=== PATIENT | female | born 1955 | race Caucasian/White ===

== ENCOUNTER 2024-09-16 02:46 | Emergency (ER) | payer MEDICARE, MEDICAID ==
[~2024-09-16] VITALS: Ht 165.1 cm; Wt 63.6 kg
[2024-09-16 03:26] LABS: BASOPHILS % (AUTO) 1.4 % (0-1); EOSINOPHILS # (AUTO) 0.2 X10'3 (0-0.9); EOSINOPHILS % (AUTO) 6.5 % (0-6); HEMATOCRIT 40.2 % (35.0-45.0); HEMOGLOBIN 12.9 g/dl (12.0-16.0); LYMPHOCYTES # (AUTO) 1.1 X10'3 (1.1-4.8); LYMPHOCYTES % (AUTO) 33.1 % (21-51); MEAN CORPUSCULAR HEMOGLOBIN 27.2 PG (27.0-31.0); MEAN CORPUSCULAR HGB CONC 32.2 g/dL (33.0-36.5); MEAN CORPUSCULAR VOLUME 84.4 FL (78-98); MEAN PLATELET VOLUME 8.6 FL (7.4-10.4); MONOCYTES # (AUTO) 0.4 X10'3 (0-0.9); MONOCYTES % (AUTO) 13.1 % (2-12); NEUTROPHILS # (AUTO) 1.5 X10'3 (1.8-7.7); NEUTROPHILS % (AUTO) 45.9 % (42-75); PLATELET COUNT 161 X10'3 (140-440); RED BLOOD COUNT 4.77 X10'6 (4.20-5.60); RED CELL DISTRIBUTION WIDTH 18.8 % (11.5-14.5); WHITE BLOOD COUNT 3.3 X10'3 (4.5-11.0)
[2024-09-16 03:37] LABS: ALANINE AMINOTRANSFERASE 31 U/L (12-78); ALBUMIN 2.9 G/DL (3.4-5.0); ALBUMIN/GLOBULIN RATIO 0.7 (1.1-1.5); ALKALINE PHOSPHATASE 129 IU/L (46-116); ANION GAP 7 (8-16); ASPARTATE AMINO TRANSFERASE 33 U/L (10-37); BILIRUBIN,TOTAL 0.4 MG/DL (0.1-1.0); BLOOD UREA NITROGEN 18 MG/DL (7-18); BUN/CREATININE RATIO 38.3 (10.0-20.0); CALCIUM 9.3 MG/DL (8.5-10.1); CHLORIDE 102 MMOL/L (99-107); CREATININE 0.47 MG/DL (0.40-0.90); GLUCOSE 108 MG/DL (70-104); LIPASE 55 U/L (16-77); POTASSIUM 3.5 MMOL/L (3.5-5.1); SODIUM 138 MMOL/L (135-145); TOTAL CARBON DIOXIDE 29.2 MMOL/L (24-32); eCRCL 105 ML/MIN; eGFR > 90 ML/MIN
--- NOTE | 2024-09-16 04:01 | Physician Documentation ---
History of Present Illness Chief Complaint: Abdominal Pain Stated Complaint: ABD PAIN Time Seen by MD: 04:00 Source: patient Mode of Arrival: EMS HPI 69-year-old female, presenting with right side abdominal and back pain. She tells me that for about the past 1 week she has been having pain, that started in her right flank, and then wrapped around the right side of her abdomen towards her lower abdomen. It has been constant, and very uncomfortable, she has not been able to sleep due to the pain. She also reports that she noticed a rash over her right side. She states it was very painful and itchy, and was draining fluid. She thought it was a fungal rash and so her family was putting antifungal cream on it but this did not seem to help. She also reports dysuria and foul-smelling urine. No fevers, chills, or left-sided flank pain. No nausea or vomiting. No other acute concerns. Medication Reconciliation Allergies: Coded Allergies: sulfamethoxazole (Verified Allergy, Unknown, 09/16/24) trimethoprim (Verified Allergy, Unknown, 09/16/24) Uncoded Allergies: PENICILLIN (Allergy, Unknown, 09/16/24) Scheduled Cephalexin*Monohydrate* (Keflex*), 1 CAP PO TID Scheduled PRN Hydrocodone Bit/Acetaminophen 5/325 MG ([place]ena 5/325 MG), 1 TAB PO Q8H PRN for pain Review of Systems Constitutional: Denies: fever Gastrointestinal: Reports: abdominal pain; Denies: nausea, vomiting, diarrhea Genitourinary: Reports: burning Integumentary: Reports: rash Physical Exam Vital Signs: Temperature: 97.5, Source: Oral, Heart Rate: 94, Respiratory Rate: 16, BP: 99/76, Pulse Oximetry: 95, Weight: 63.640 Oxygen Flow Rate: 0 Physical Exam General: This is a very pleasant and nontoxic appearing middle-aged female HEENT: Atraumatic, oropharynx appears dry Heart: Mild tachycardic, appears regular Lungs: Clear breath sounds bilateral, normal work of breathing, normal oxygen saturation on room air Abdomen: Soft, nondistended. Tender to palpation on the right lateral abdomen and suprapubic region. No left-sided tenderness. Skin: The patient has a rash over her right flank and abdomen. It extends from the midline back and wraps around the right flank to the right lower abdomen. It is scattered small round scabbed areas with mild surrounding erythema. Appears consistent with zoster. No significant superinfection. It is very painful to touch. Neuro: Alert and oriented, no focal deficits Psychiatric: Calm and cooperative with exam Progress Results/Orders Results/Orders Orders - JAYDEN JUNG MD Urinalysis, Cult If Indicated (09/16/24 02:57) Completed Orders - JAYDEN JUNG MD Cbc/Diff (09/16/24 02:57) Lipase (09/16/24 02:57) CMP (09/16/24 02:57) Vital Signs 09/16/24 02:55 Temp 97.5 Pulse 94 Resp 16 B/P (MAP) 99/76 Pulse Ox 95 O2 Flow Rate 0 Laboratory Tests Test 09/16/24 03:13 White Blood Count 3.3 L Red Blood Count 4.77 Hemoglobin 12.9 Hematocrit 40.2 Mean Corpuscular Volume 84.4 Mean Corpuscular Hemoglobin 27.2 Mean Corpuscular Hemoglobin Concent 32.2 L Red Cell Distribution Width 18.8 H Platelet Count 161 Mean Platelet Volume 8.6 Neutrophils (%) (Auto) 45.9 Lymphocytes (%) (Auto) 33.1 Monocytes (%) (Auto) 13.1 H Eosinophils (%) (Auto) 6.5 H Basophils (%) (Auto) 1.4 H Neutrophils # (Auto) 1.5 L Lymphocytes # (Auto) 1.1 Monocytes # (Auto) 0.4 Eosinophils # (Auto) 0.2 Basophils # (Auto) 0.0 CBC Comment Sodium Level 138 Potassium Level 3.5 Chloride Level 102 Carbon Dioxide Level 29.2 Anion Gap 7 L Blood Urea Nitrogen 18 Creatinine 0.47 Estimated GFR/1.73 m2 > 90 BUN/Creatinine Ratio 38.3 H Glucose Level 108 H Calcium Level 9.3 Total Bilirubin 0.4 Aspartate Amino Transf (AST/SGOT) 33 Alanine Aminotransferase (ALT/SGPT) 31 Alkaline Phosphatase 129 H Total Protein 7.0 Albumin 2.9 L Globulin 4.1 Albumin/Globulin Ratio 0.7 L Lipase 55 Chemistry Comments Medical Decision Making Additional Comments Differential includes kidney stone, kidney infection or UTI, zoster, cellulitis, gallbladder disease, appendicitis, bowel obstruction Assessment The patient presents with 1 week of right-sided back and abdominal pain as well as dysuria. On exam she has findings consistent with a zoster rash, which seems to be the cause of her right-sided pain. She also does have a urinary tract infection, but I doubt pyelonephritis or sepsis given her lack of fever, leukocytosis, or other acute abnormality. She is otherwise well-appearing. Her zoster rash has been present for at least a week, and so I do not feel it antivirals it be indicated at this time. She will be given pain medication especially to help her sleep. She will be treated with Keflex for her urinary tract infection, to cross cover to prevent cellulitis related to her shingles. She was given home care instructions and return precautions. Departure Time of Disposition: 05:10 Disposition: 01 HOME / SELF CARE / HOMELESS Impression: Primary Impression: UTI (urinary tract infection) Additional Impression: Shingles rash Condition: Improved Discharge Instructions: Shingles, Urinary Tract Infection, Adult Referrals: NO PRIMARY CARE PROVIDER (PCP) [facility] Prescriptions Cephalexin*Monohydrate* (Keflex*) 500 Mg Capsule 1 CAP PO TID for 7 Days, #21 CAP Prov: JAYDEN JUNG MD 09/16/24 Hydrocodone Bit/Acetaminophen 5/325 MG (Modena 5/325 MG) 5 Mg/325 Mg Tablet 1 TAB PO Q8H PRN for pain for 7 Days, #14 TAB Prov: JAYDEN JUNG MD 09/16/24 Education Educated: Patient Educated regarding: diagnosis, treatment, need for follow up Signature Scribe Signature: jeanne Attestation: JAYDEN Sharma MD September 16, 2024 04:01
[2024-09-16 04:41] LABS: BILIRUBIN,URINE NEGATIVE (Neg); COLOR,URINE YELLOW (Yellow); GLUCOSE, URINE NEGATIVE (Neg); KETONES,URINE NEGATIVE (Neg); LEUKOCYTE ESTERASE ,URINE MODERATE (Neg); NITRITES, URINE NEGATIVE (Neg); OCCULT BLOOD,URINE LARGE (Neg); PROTEIN,URINE TRACE mg/dl (Neg); UROBILINOGEN,URINE 0.2 E.U/dL (0.2-1.0)
[2024-09-16 04:43] LABS: UA COLLECTION TYPE STRAIGHT CATH
[2024-09-16 04:52] LABS: BACTERIA,URINE 4+ /HPF (Neg); CLARITY,URINE CLOUDY (Clear); RBC,URINE 20-50 /HPF (0-2); WBC,URINE TNTC /HPF (0-4)
[2024-09-16 04:53] LABS: SQUAMOUS EPITHELIAL CELL,UR NONE SEEN /LPF (FEW)
[2024-09-16] MEDS: oxyCODONE IR 5mg (immed. release) tablet PO ONE (05:02)
[2024-09-16] MEDS: cephalexin 250mg capsule PO ONE (05:23)
[2024-09-16] MEDS ORDERED: HYDR-3965 PO (05:35)
[2024-09-16] MEDS ORDERED: CEPH-585 PO (05:35)
[2024-09-16] MEDS: HYDROcodone/acetaminophen 5mg/325mg tablet PO ONE (05:54)
[2024-09-16 06:26] VITALS: BP 110/75; PULSE 88; RESP 16; TEMP 97.5; O2SAT 99
== END 2024-09-16 09:15 | disposition home or self-care (01) ==
LOC: ER 02:47
DX: N39.0 Urinary tract infection, site not specified (principal); B02.9 Zoster without complications; Z88.1 Allergy status to other antibiotic agents; Z88.2 Allergy status to sulfonamides
CPT/HCPCS: 36415; 80053; 81001; 83690; 85025; 87088; 99284; A4353; 87077; 87186

== ENCOUNTER 2024-09-22 23:13 | Emergency (ER) | payer MEDICARE, MEDICAID ==
[~2024-09-22] VITALS: Ht 165.1 cm; Wt 81.8 kg
[~2024-09-22 23:13] MED LIST: CEPH-585 PO; HYDR-3965 PO
[2024-09-22] MEDS ORDERED: proCHLORperazine 10 MG/2 ml inj IV PRN (23:30)
--- NOTE | 2024-09-22 23:32 | Physician Documentation ---
History of Present Illness Chief Complaint: Abdominal Pain Stated Complaint: ABDOMINAL PAIN Time Seen by MD: 23:19 HPI This is a 69-year-old female, bed-bound, comes in for evaluation of diffuse abdominal pain and nausea that has been present and getting progressively worse for the last 14 days. No obvious trigger, trauma provocation. No palliating or aggravating factors were reported with the patient. She did attempt to treat it by taking her morphine that she normally takes for her chronic neck pain without any success whatsoever. EMS provided her with Zofran without relief of the nausea. No concern for tobacco, alcohol or illicit substances use Medication Reconciliation Allergies: Coded Allergies: Penicillins (Unverified Allergy, Unknown, 09/22/24) sulfamethoxazole (Verified Allergy, Unknown, 09/22/24) trimethoprim (Verified Allergy, Unknown, 09/22/24) Scheduled Cephalexin*Monohydrate* (Keflex*), 1 CAP PO TID Scheduled PRN Hydrocodone Bit/Acetaminophen 5/325 MG ([place] 5/325 MG), 1 TAB PO Q8H PRN for pain Review of Systems ROS 10 point review of systems was performed and unless noted above in HPI is negative for acute process/complaint. Physical Exam Vital Signs: Temperature: 98.2, Heart Rate: 94, Respiratory Rate: 18, BP: 114/77, Pulse Oximetry: 97, Weight: 81.820 Physical Exam GENERAL: Awake, alert, oriented, GCS 15, no apparent distress, non-toxic appearing, answers questions, follows commands appropriately. Examined immediately upon arrival in bed 11. HEENT: Atraumatic, normocephalic, pupils equal, extraocular muscles intact, sclerae anicteric, mucus membranes moist, oropharynx is clear, no stridor. NECK: supple, full active range of motion, trachea midline, no thyromegaly, no lymphadenopathy, no JVD. CARDIOVASCULAR: regular rate/rhythm, no murmurs/gallops/rubs, Pulses are 2+ in all extremities and symmetric. Capillary refill less than 2 seconds. PULMONARY: Nonlabored, good air movement ,no respiratory distress, speaking in full sentences, clear to auscultation bilaterally, no wheezing, no ronchi, no rales, no accessory muscle use. GASTROINTESTINAL: Soft, diffuse abdominal tenderness palpation, non-distended, normal active bowel sounds, no organomegaly, no pulsatile masses, no CVA tenderness. NEUROLOGIC: Lucid with normal mental status. Normal facial symmetry. Moves all extremities symmetrically and with purpose. No truncal ataxia. Speech is fluid without evidence of dysarthria or aphasia, no focal deficits appreciated. MUSCULOSKELETAL: There is full range of motion of all extremities. There is no joint pain or joint swelling or joint erythema. There is no muscle pain or tenderness or swelling. EXTREMITIES: warm, well-perfused, no cyanosis, no clubbing, no edema, no acute deformities. Skin: warm, dry, no rashes or lesions, no jaundice, no petechiae orpurpura. No ecchymosis. PSYCHIATRIC: Normal affect, normal insight, normal concentration. Focused exam: [] No guarding or rebound Progress Results/Orders Results/Orders Orders - ENEDELIA SCHWAB DO Electrocardiogram (09/22/24 23:26) Cbc/Diff (09/22/24 23:26) Lipase (09/22/24 23:) LDH (09/22/24 23:26) Pt Inr (09/22/24 23:26) PTT (09/22/24 23:26) Chest,Single View (09/22/24 23:26) MG (09/22/24 23:26) Ct Abdomen Pelvis (09/22/24 23:26) CMP (09/22/24 23:26) Hs Troponin I W Calculations (09/22/24 23:26) Hs Troponin I W Calculations (09/23/24 01:26) Hs Troponin I W Calculations (09/23/24 02:26) Diatr Meglu/Diatrizoate 30ml (Gastrograf (09/22/24 23:30) Prochlorperazine Inj (Compazine Inj) (09/22/24 23:30) Morphine 4mg/Ml Inj. (Morphine Inj.) (09/22/24 23:30) Vital Signs 09/22/24 23:21 Temp 98.2 Pulse 94 Resp 18 B/P (MAP) 114/77 Pulse Ox 97 EKG/XRAY/CT/US/VASC/MRI EKG : Additional Comment EKG was obtained at my request and interpreted by myself shows sinus rhythm, rate of 89, normal SD interval, narrow QRS, no QT prolongation, normal axis, no STEMI. Medical Decision Making Findings Facility Status: ED Holds, RME process The plan was discussed with the patient, who demonstrates clear understanding of the plan and is in agreement with the plan unless otherwise noted in the chart. All questions have been answered, all concerns were addressed unless otherwise documented. I was available throughout their ED stay for frequent reassessment and questions. Differential Diagnoses (considered and possible or likely): [Differential diagnosis considered includes acute appendicitis, acute cholecystitis, pancreatitis, gastritis, PUD, diverticulitis, mesenteric ischemia, abdominal aortic aneurysm, bowel obstruction, enteritis, colitis, fecal impaction, volvu yanna, IBS, inflammatory bowel disease, specific food intolerance, peritonitis, perforated viscous, malignancy, UTI, abscess, and abdominal pain NOS. Pelvic source of pain was also considered including endometritis, dysmenorrhea, ovarian cyst, ovarian torsion, PID, TOA, cervicitis, vaginitis, or uterine fibroid. History, physical exam, and workup exclude many of the more serious causes listed above. ] ??Differential Diagnoses (considered and unlikely, not requiring evaluation currently): [Aortic/great vessels dissection was considered but it is unlikely based on absence of ripping, tearing, migratory chest pain, absence of syncope or focal neurologic deficits, physical examination indicating equal and sym metric pulses.] MDM Data Please see [facility] for the following: Independent Historians and external Records Review. Historian: [Patient] Independent Historians: ?[EMS, record review] Medication Management: [Reviewed medication list] Social History and determinants: [Reviewed] Please see the body of the note for the following: Any independent interpretations of ECG, imaging studies. All vitals signs/haemodynamics, ordered tests were independently reviewed and interpreted by myself. Nursing triage complaint and vitals reviewed, additional nursing notes were reviewed as available and I agree unless otherwise noted or documented in contradiction in the chart Vital Signs: Independently reviewed Labs: Independently interpreted Imaging: Independently interpreted Old Medical Records: Independently reviewed, see [facility] for relevant summary and information Pulse Oximetry: [95%] interpreted as [normal on room air] by me [Security Sergeant: [Regular Rate, Regular rhythm, no ectopy, NSR] reviewed and interpreted by me] Additionally notably showing: [Hemodynamically stable. Unremarkable workup. Blood work notable for mild dehydration. CT notable for constipation.] Tests considered but not ordered include: [Ultrasound has been considerably but she is status post cholecystectomy] Social Determinants of Health Impact: Patient was evaluated in [facility], or [facility] [place] to healthcare due to below par ratio of patient to medical providers. [] Comorbid Conditions Impacting Present Evaluation and Care/Treatment: [Multiple see list] Management Discussions with other Healthcare Providers: [Non] Treatment and Disposition Medication Management (Given or considered): [Pain management]. See EMR for details Consideration for Hospitalization/Escalation/Deescalation of Care: Admission for observation has been considered, [however the patient is able to tolerate p.o., their symptoms are controlled, they are able to rely on oral medications, and their chief complaint/diagnosis can be managed on outpatient basis.] ?ED Course:?[No clinical deterioration, no life-threatening process on the CT scan. Patient was resting comfortably sleeping in bed.] ?Shared decision making:?[Patient is hemodynamically stable for discharge home with follow with their primary care provider. [ ] Specific and cautious return precautions provided and discussed with full understanding. Any incidental findings were also discussed and follow up recommendations given. [] All questions answered. Patient/family were able to verbalize back return precautions. Patient/family agree to plan. Copies of imaging and laboratory studies were provided.] Code status:?FULL Please see the full Electronic Medical Record for full details of nursing documentation, medications list, other records of complete past medical history and conditions, vital signs, laboratory studies, and any radiologic study interpretations by radiologists. Portions of this note were completed using [employer] dictation software and as a result there may exist minor errors in spelling. I have reviewed elements of past family and social history and agree as included in note. Departure Disposition: 01 HOME / SELF CARE / HOMELESS Impression: Primary Impression: Abdominal pain Additional Impression: Constipation Discharge Instructions: Constipation, Adult, Abdominal Pain (Nonspecific) Referrals: NO PRIMARY CARE PROVIDER (PCP) Education Educated: Patient Educated regarding: diagnosis, treatment, prognosis, need for follow up Signature Scribe Signature: No scribe Attestation: This note accurately reflects clinical decisions, work performed by myself, DO JOSSELIN Collins NICHOLAS M DO September 22, 2024 23:31
--- NOTE | 2024-09-22 23:38 | ELECTROCARDIOGRAPH REPORT ---
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 Mitul Guerrero Measurements Intervals [place] Rate: 89 P: 82 [place]: 149 QRS: 61 QRSD: 98 T: 42 QT: 376 QTc: 458 Interpretive Statements Atrial-paced complexes Probable left ventricular hypertrophy Electronically Signed On 09-23-2024 6:34:[address] Mitul Guerrero Please click the below link to view image of tracing.
[2024-09-22 23:48] LABS: BASOPHILS % (AUTO) 0.9 % (0-1); EOSINOPHILS # (AUTO) 0.1 X10'3 (0-0.9); EOSINOPHILS % (AUTO) 2.5 % (0-6); HEMATOCRIT 41.6 % (35.0-45.0); HEMOGLOBIN 13.2 g/dl (12.0-16.0); LYMPHOCYTES # (AUTO) 1.1 X10'3 (1.1-4.8); LYMPHOCYTES % (AUTO) 36.7 % (21-51); MEAN CORPUSCULAR HEMOGLOBIN 27.1 PG (27.0-31.0); MEAN CORPUSCULAR HGB CONC 31.9 g/dL (33.0-36.5); MEAN CORPUSCULAR VOLUME 84.9 FL (78-98); MEAN PLATELET VOLUME 8.9 FL (7.4-10.4); MONOCYTES # (AUTO) 0.3 X10'3 (0-0.9); MONOCYTES % (AUTO) 11.6 % (2-12); NEUTROPHILS # (AUTO) 1.4 X10'3 (1.8-7.7); NEUTROPHILS % (AUTO) 48.3 % (42-75); PLATELET COUNT 130 X10'3 (140-440); RED CELL DISTRIBUTION WIDTH 18.3 % (11.5-14.5)
[2024-09-22 23:59] LABS: APTT 29 SECONDS (22-32); PROTHROMBIN TIME 10.3 SECONDS (9.0-12.0)
[2024-09-23 00:01] LABS: ALANINE AMINOTRANSFERASE 55 U/L (12-78); ALBUMIN 2.9 G/DL (3.4-5.0); ALBUMIN/GLOBULIN RATIO 0.8 (1.1-1.5); ALKALINE PHOSPHATASE 158 IU/L (46-116); ANION GAP 3 (8-16); ASPARTATE AMINO TRANSFERASE 38 U/L (10-37); BILIRUBIN,TOTAL 0.4 MG/DL (0.1-1.0); BLOOD UREA NITROGEN 9 MG/DL (7-18); CALCIUM 9.1 MG/DL (8.5-10.1); CHLORIDE 105 MMOL/L (99-107); CREATININE 0.41 MG/DL (0.40-0.90); GLUCOSE 98 MG/DL (70-104); LACTATE DEHYDROGENASE 164 U/L (81-234); LIPASE 38 U/L (16-77); MAGNESIUM 1.7 MG/DL (1.5-2.4); POTASSIUM 3.8 MMOL/L (3.5-5.1); SODIUM 140 MMOL/L (135-145); TOTAL CARBON DIOXIDE 32.3 MMOL/L (24-32); TOTAL PROTEIN 6.7 G/DL (6.4-8.2); eCRCL 120 ML/MIN; eGFR > 90 ML/MIN
--- NOTE | 2024-09-23 00:08 | RADIOLOGY REPORT ---
CHEST RADIOGRAPH Indication: Pain Technique: Single frontal view of the chest was obtained COMPARISON: None FINDINGS: Lines and Tubes: None Lungs: No pulmonary infiltrates or edema. Pleura: No effusion. No pneumothorax. Cardiomediastinal contours: Unremarkable. Bones: Advanced degenerative changes in bilateral glenohumeral joints. IMPRESSION: No acute disease.
[2024-09-23] MEDS: morphine 4 MG/ML inj SYRINge IV ONE ×2 (00:15→02:57)
[2024-09-23] MEDS: diatr meglu/diatrizoate 30ml oral sol.-(3 dose) bottle PO SCH (00:15)
[2024-09-23 00:47] LABS: TOTAL CELLS COUNTED 100
[2024-09-23 00:48] LABS: ANISOCYTOSIS 2+; PLATELET ESTIMATE DECREASED
[2024-09-23] MEDS ORDERED: iohexol 300mg/ml 100ml inj. ONE (02:09)
[2024-09-23 03:03] VITALS: TEMP 98.4
--- NOTE | 2024-09-23 03:26 | RADIOLOGY REPORT ---
Exam: CT CT ABDOMEN PELVIS W/ IV ORAL CONTRAST History: Diffuse abdominal pain COMPARISON: None Technique: Multidetector spiral CT of the abdomen and pelvis was performed from lung bases to pubic s ymphysis. Intravenous contrast was administered during this examination. Portal venous imaging was o btained. Axial, coronal and sagittal multiplanar reformats were performed by the technologist on a [employer] workstation. Radiation Dose : 1. Abdomen/Pelvis: CTDIvol 32.25 mGy, DLP 1394.22 mGy*cm. CONTRAST: Type of contrast: Omnipaque 300 Contrast injected: 100 ml Contrast ingested: Oral contrast Findings: Lung Bases: No acute or significant lung base finding. Normal heart size. No pleural or pericardial effusion. Liver: The liver is normal in size. No focal lesions. Normal hepatic vascular enhancement. Gallbladder and Biliary Tree: Moderate dilatation of the common bile duct status post cholecystectomy , measuring up to 1.5 cm. Moderate intrahepatic biliary ductal dilatation. Spleen: Unremarkable Pancreas: The pancreas is normal in appearance without focal lesions or abnormal enhancement. Adrenal Glands: Unremarkable Kidneys: No hydronephrosis. Bilateral renal cortical cysts measure up to 2.8 cm within the left inf erior pole. Bladder: Unremarkable Bowel: Moderate hiatal hernia. The stomach is otherwise grossly normal in appearance. Excess retained stool throughout the colon. Small bowel and colon are otherwise normal in caliber and distribution. The appendix is not visualized; however, no secondary findings of acute appendicitis identified. Ascites: Absent Lymphadenopathy: No mesenteric, retroperitoneal or periportal lymphadenopathy. Abdominal Wall and Mesentery: Unremarkable. Vasculature: Moderately tortuous abdominal aorta with atherosclerotic vascular calcifications. The vi sualized abdominal aorta is otherwise normal in size and caliber. Abdominal and pelvic vessels demon strate normal enhancement. Pelvic Organs: Unremarkable Musculoskeletal: Extensive degenerative change throughout the lumbar spine including osseous fusion a nd marked dextroscoliosis. Hardware within the right hip status post total arthroplasty and left femo ral intramedullary avery. No aggressive focal bony lesions, acute fractures or dislocation. IMPRESSION: 1. Moderate intra and extrahepatic biliary ductal dilatation status post cholecystectomy. 2. Hiatal hernia. 3. Excess retained stool throughout the colon in a pattern of constipation. 4. No evidence of acute abdominopelvic process. Radiation optimization: All CT scans at this facility use at least one of these dose optimization gilbert hniques: automated exposure control mA and/or kV adjustment per patient size (includes targeted exam s where dose is matched to clinical indication) or iterative reconstruction.
[2024-09-23 08:00] VITALS: BP 107/69; PULSE 83; RESP 18; O2SAT 98
== END 2024-09-23 08:12 | disposition home or self-care (01) ==
LOC: ER 23:14
DX: K59.00 Constipation, unspecified (principal); R10.84 Generalized abdominal pain; I11.0 Hypertensive heart disease with heart failure; I50.9 Heart failure, unspecified; Z88.0 Allergy status to penicillin; Z88.2 Allergy status to sulfonamides
CPT/HCPCS: 36415; 71045; 74177; 80053; 83615; 83690; 83735; 84484; 85007; 85025; 85610; 85730; 93005; 96374; 96376; 99285; J2270; Q9963; Q9967